=== PATIENT | male | born 1960 | race Caucasian/White ===

== ENCOUNTER 2023-10-04 11:55 | Outpatient (CLI) | payer MEDICAID | END 2023-10-04 23:59 | disposition critical access hospital (66) | LOC: EMS 11:55 | DX: M79.89 Other specified soft tissue disorders (principal); Z86.718 Personal history of other venous thrombosis and embolism | CPT/HCPCS: A0425; A0429; A0999 ==

== ENCOUNTER 2023-10-04 12:17 | Emergency (ER) | payer MEDICAID ==
[2023-10-04 12:44] VITALS: O2SAT 99
[2023-10-04] MEDS ORDERED: APIXABAN 5 MG TABLET PO STA (13:02)
--- NOTE | 2023-10-04 13:08 | ED Physician Documentation ---
PD HPI LOWER EXT INJURY - Stated complaint Stated Complaint: SWOLLEN LEG - Chief complaint Chief Complaint: Trauma Ext - History obtained from History obtained from: Patient - History of Present Illness PD HPI LOW EXT INJURY LOCATION: Right, Lower leg Type of injury: No: Fall, Twist Timing - onset: How many months ago (The patient developed swelling and tenderness in the right calf about 2 months ago and seen and evaluated with ultrasound showing a DVT. He is on Eliquis for approximately a month and a half. He states he was having lessened symptoms though the swelling had not decreased back to baseline.), Other (He stopped the Eliquis about a week ago but has not had any increasing pain or swelling and no dyspnea nor chest pain. He was being evaluated at a detox facility and the topic of being off the Eliquis came up and he was referred here for medical evaluation.) Timing - duration: Months (2) Timing - details: Abrupt onset, Still present Worsened by: No: Moving, Palpating Review of Systems Constitutional: denies: Fever, Chills Cardiac: denies: Chest pain / pressure, Palpitations Respiratory: denies: Dyspnea, Wheezing Skin: denies: Abrasion (s), Laceration (s) Neurologic: denies: Focal weakness, Numbness PD PAST MEDICAL HISTORY - Past Medical History Past Medical History: Yes Cardiovascular: Deep vein thrombosis Respiratory: None Endocrine/Autoimmune: None GI: GERD Musculoskeletal: Chronic back pain - Past Surgical History Past Surgical History: Yes Ortho: Other - Present Medications Home Medications: Ambulatory Orders Medication Instructions Recorded Confirmed Apixaban [Eliquis] 5 mg PO BID #30 tablet 10/04/23 - Allergies Allergies/Adverse Reactions: Allergies Allergy/AdvReac Type Severity Reaction Status Date / Time No Known Drug Allergies Allergy Verified 10/04/23 13:04 - Social History Does the pt smoke?: Yes Smoking Status: Current every day smoker Does the pt drink ETOH?: Yes ETOH Use: Beer Does the pt have substance abuse?: No PD ED PE NORMAL - Vitals Vital signs reviewed: Yes (99% sats, not tachycardic.) - General General: Alert and oriented X 3, No acute distress, Well developed/nourished - Cardiac Cardiac: RRR, No murmur - Respiratory Respiratory: Clear bilaterally - Derm Derm: Normal color, Warm and dry - Extremities Extremities: Other (Lower extremities show larger size calf on the right compared to the left. Minimal to no tenderness along the medial posterior aspect. No popliteal tenderness nor not in the thigh. Sensation and movement are good distally.) - Neuro Neuro: No motor deficit, No sensory deficit Results - Vitals Vitals: Vital Signs - 24 hr 10/04/23 12:31 Temperature 36.9 C Heart Rate 96 Respiratory 18 Rate Blood Pressure 151/85 H O2 Saturation 99 Oxygen O2 Source Room air PD Medical Decision Making - ED course Complexity details: considered differential (The patient has persistent swelling of the right lower leg related to a DVT from approximately 2 months ago. He was on Eliquis for most of the time. The swelling had stayed stable and so he d/c'd the Eliquis about 1 weeks ago. Has not noticed any increased pain or swelling, CP, dyspnea.), d/w patient ED course: The patient had had a prior DVT 2 to 3 years ago. Recurrent 1 couple of months ago without notable injury. 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 Otherwise no particular illness or such. He was prescribed Eliquis and had been taking that. No worsening of symptoms though the swelling had not resolved completely to baseline. However he stopped Eliquis a week ago. Is here now for alcohol treatment at a detox facility. The topic came up of being off of his Eliquis with the some swelling. Again he has not had any increased swelling or renewed pain. However sent here for medical eval. At this point I believe he just needs to be back on his Eliquis. There is minimal tenderness in the calf. Good pulses and sensation distally. No thigh tenderness. It does not seem to be on the increasing degree of phlebitis s ymptoms and he appears well. Vitals are good. At this point I would defer ultrasound as there is probably reasonable likelihood of some mild persistent clot still there. Without any increasing symptoms, the treatment is going to be the same with resumption of his Eliquis which she is comfortable with and will follow-up with his primary care subsequently. I will prescribe him a week or 2's worth now as he is getting treatment and then he turns back home and will follow-up with his primary care. Departure - Departure Disposition: 01 Home, Self Care Clinical Impression: Swelling of right lower extremity DVT (deep venous thrombosis) Qualifiers: DVT location: lower extremity Affected thrombotic vein of extremity: unspecified vein of extremity Chronicity: unspecified Laterality: right Qualified Code(s): I82.401 - Acute embolism and thrombosis of unspecified deep veins of right lower extremity Condition: Stable Record reviewed to determine appropriate education?: Yes Instructions: ED DVT Prescriptions: Apixaban [Eliquis] 5 mg PO BID #30 tablet Comments: Resume your Eliquis 5 mg twice daily. Elevate and rest the leg intermittently through the day for swelling. Tylenol every 4-6 hours if needed for pain, 500 t o 650 mg. I sent your prescription to [facility]. She did receive a dose here this afternoon. Return to the detox facility to continue evaluation and treatment.
[2023-10-04 14:24] VITALS: BP 161/87
== END 2023-10-04 14:15 | disposition home or self-care (01) ==
LOC: ED 12:17
DX: I82.401 Acute embolism and thrombosis of unspecified deep veins of right lower extremity (principal); F17.200 Nicotine dependence, unspecified, uncomplicated; Z86.718 Personal history of other venous thrombosis and embolism; Z79.01 Long term (current) use of anticoagulants
CPT/HCPCS: 99283; 99284